=== PATIENT | female | born 1975 ===

== ENCOUNTER 2019-06-12 14:49 | Emergency (ER) | payer MEDICARE, OTHER ==
[~2019-06-12] VITALS: Ht 167.6 cm; Wt 61.2 kg
[~2019-06-12 14:49] MED LIST: ACET120S PR; AMOX500 PO; ASCOL; ATOMOXETINE; AZAT50 PO; CALCIT950; CALGLU500; CARB50; CIPR500 PO; CYCL10 PO; DIAZ10; DIAZ10 PO; DIPATR PO; DOXY100 PO; DRON2.5 PO; Entocort EC 3 mg3 MG PO; HUMERA; HYDACE10B; HYDACE10B PO; HYDACE5 PO; HYOS.125; HYOS.125 SL; IRON 325 MG; LEVSOD100; LONOX PO; LOSHYD; MESA250ER PO; MESA400ER; METR500 PO; MORP15ER PO; OXYACE10 PO; OXYACE5T PO; OXYC10ER; OXYC5; OXYC5 PO; PENVK500 PO; PRED20 PO; REMICADE INFUSION; RXHYDACE PO; RXOXYACE PO; Robaxin500 MG PO; TRAM50 PO; Zofran Odt4 MG SL; [UNRECOGNIZED DRUG - OTHER]; [UNRECOGNIZED DRUG - REMARK]; [UNRECOGNIZED DRUG - REMARK]
[2019-06-12] MEDS ORDERED: ROXICODONE15 MG PO (15:11)
[2019-06-12] MEDS ORDERED: NEURONTIN300 MG PO (15:12)
[2019-06-12] MEDS ORDERED: META800 PO (15:24)
[2019-06-12] MEDS ORDERED: VOLTAREN100 GM TOP (15:24)
== END 2019-06-12 15:33 | disposition home or self-care (01) ==
LOC: ER 14:49
DX: M62.830 Muscle spasm of back (principal); J45.909 Unspecified asthma, uncomplicated; I10 Essential (primary) hypertension; M47.819 Spondylosis without myelopathy or radiculopathy, site unspecified; Z88.2 Allergy status to sulfonamides; Z88.6 Allergy status to analgesic agent; Z88.8 Allergy status to other drugs, medicaments and biological substances; Z79.899 Other long term (current) drug therapy
CPT/HCPCS: 99282

== ENCOUNTER 2019-11-19 21:11 | Emergency (ER) | payer MEDICARE, OTHER ==
[~2019-11-19] VITALS: Ht 167.6 cm; Wt 52.6 kg
== END 2019-11-19 22:53 | disposition left against medical advice (07) ==
LOC: ER 21:11
DX: D72.829 Elevated white blood cell count, unspecified (principal); D47.3 Essential (hemorrhagic) thrombocythemia; R10.9 Unspecified abdominal pain; I10 Essential (primary) hypertension; J45.909 Unspecified asthma, uncomplicated; Z88.8 Allergy status to other drugs, medicaments and biological substances; Z88.6 Allergy status to analgesic agent; Z79.899 Other long term (current) drug therapy
CPT/HCPCS: 99283

== ENCOUNTER → 2019-11-19 | Outpatient (CLI) | payer MEDICARE, OTHER ==
[~2019-11-19] MED LIST changes: +META800 PO; +NEURONTIN300 MG PO; +ROXICODONE15 MG PO; +VOLTAREN100 GM TOP
[2019-11-19 18:30] LABS: BASOPHILS ABSOLUTE AUTO 0.08 K/mm3 (0.00-0.23); BASOPHILS PERCENT AUTO 0 % (0-2); EOSINOPHILS ABSOLUTE AUTO 0.43 K/mm3 (0.00-0.68); EOSINOPHILS PERCENT AUTO 2 % (0-6); Hematocrit 28.6 % (33.0-51.0); Hemoglobin 8.8 g/dL (11.5-16.0); IMMATURE GRAN ABSOLUTE AUTO 0.28 K/mm3 (0.00-0.10); IMMATURE GRAN PERCENT AUTO 1 % (0-1); LYMPHOCYTES ABSOLUTE AUTO 1.86 K/mm3 (0.84-5.20); LYMPHOCYTES PERCENT AUTO 8 % (21-46); MONOCYTES ABSOLUTE AUTO 1.61 K/mm3 (0.16-1.47); MONOCYTES PERCENT AUTO 7 % (4-13); Mean Corpuscular HGB 24.6 pg (26.0-34.0); Mean Corpuscular HGB Conc 30.8 g/dL (31.5-36.5); Mean Corpuscular Volume 80 fL (80-100); Mean Platelet Volume 8.3 fL (9.1-12.4); NEUTROPHILS ABSOLUTE AUTO 19.77 K/mm3 (1.96-9.15); NEUTROPHILS PERCENT AUTO 82 % (41-73); RDW Coefficient Variation 17.2 % (11.7-14.2); RDW Standard Deviation 49.9 fL (35.1-46.3); Red Blood Cell Count 3.57 M/mm3 (3.80-5.20); White Blood Cell Count 24.03 K/mm3 (4.00-11.30)
[2019-11-19 18:42] LABS: Alanine Aminotransfer (ALT/SGP 10 U/L (12-78); Albumin/Globulin Ratio 0.4 (0.8-1.8); Alk Phos 110 U/L (40-126); Anion Gap 4 mmol/L (6-16); Aspartate Aminotrans (AST/SGOT 10 U/L (12-37); Bilirubin, Total 0.1 mg/dL (0.1-1.0); Blood Urea Nitrogen 10 mg/dL (8-24); Bun/Creatinine Ratio 13.9 (12.0-20.0); CO2, Blood 32 mmol/L (21-32); Calcium, Blood 8.5 mg/dL (8.5-10.1); Chloride, Blood 99 mmol/L (98-108); Creatinine, Blood 0.72 mg/dL (0.40-1.00); Globulin, Blood 5.1 g/dL (2.2-4.0); Glomerular Filtration Rate >60 (60-); Glucose, Blood 107 mg/dL (70-99); Potassium, Blood 4.2 mmol/L (3.5-5.5); Sodium, Blood 135 mmol/L (136-145); Total Protein, Blood 7.1 g/dL (6.4-8.2)
[2019-11-19 18:45] LABS: Platelet Count 1042 K/mm3 (150-400)
== END | disposition home or self-care (01) ==
LOC: LAB SHORT 18:26 → LAB EV 18:26 → LAB 18:26
PROVIDERS: Physician Assistant
DX: R10.9 Unspecified abdominal pain (principal)
CPT/HCPCS: 80053; 85025